=== PATIENT | female | born 1940 | race Asian ===

== ENCOUNTER 2018-07-24 21:53 | Emergency (ER) | payer MEDICARE ==
[~2018-07-24] VITALS: Ht 162.6 cm; Wt 70.9 kg
[2018-07-24] MEDS ORDERED: FAMO20 PO (22:14)
[2018-07-24] MEDS ORDERED: ASPI-556 PO (22:14)
[2018-07-24] MEDS ORDERED: LOSA50TA64 PO (22:14)
[2018-07-24] MEDS ORDERED: AMLO-512 PO (22:14)
[2018-07-24] MEDS ORDERED: [UNRECOGNIZED DRUG - OTHER] PO (22:16)
[2018-07-24] MEDS ORDERED: CloNIDine HCL 0.2 MG TABLET PO ONE (22:45)
[2018-07-24 23:46] VITALS: BP 152/77
== END 2018-07-25 00:25 | disposition home or self-care (01) ==
LOC: EMS 21:57
DX: S09.90XA Unspecified injury of head, initial encounter (principal); M62.838 Other muscle spasm; I10 Essential (primary) hypertension; Z79.82 Long term (current) use of aspirin; Z79.899 Other long term (current) drug therapy; W18.39XA Other fall on same level, initial encounter; Y93.89 Activity, other specified; Y92.89 Other specified places as the place of occurrence of the external cause; Y99.8 Other external cause status
CPT/HCPCS: 70450; 72125

== ENCOUNTER 2018-07-27 02:38 | Emergency (ER) | payer MEDICARE ==
[~2018-07-27] VITALS: Ht 162.6 cm; Wt 70.5 kg
[~2018-07-27 02:38] MED LIST: AMLO-512 PO; ASPI-556 PO; FAMO20 PO; LOSA50TA64 PO; [UNRECOGNIZED DRUG - OTHER] PO
[2018-07-27 04:04] LABS: BASOPHILS % (AUTO) 1.3 % (0.0-2.0); EOSINOPHILS % (AUTO) 2.6 % (1.0-6.0); HEMATOCRIT 40.1 % (36-46); HEMOGLOBIN 12.9 g/dL (12.0-16.0); LYMPHOCYTES # (AUTO) 1.4 K/uL (1.0-4.8); LYMPHOCYTES % (AUTO) 32.9 % (22.0-44.0); MEAN CORPUSCULAR HEMOGLOBIN 26.4 pg (26.0-34.0); MEAN CORPUSCULAR HGB CONC 32.1 G/dL (31.0-37.0); MEAN CORPUSCULAR VOLUME 82 fL (80-100); MONOCYTES # (AUTO) 0.4 K/uL (0.1-1.0); MONOCYTES % (AUTO) 9.7 % (2.0-9.0); NEUTROPHILS # (AUTO) 2.3 K/uL (1.8-7.7); NEUTROPHILS % (AUTO) 53.5 % (40.0-70.0); PLATELET COUNT (AUTO) 157 K/uL (150-450); RED BLOOD CELL COUNT(AUTO) 4.87 MIL/uL (4.00-5.20); RED CELL DISTRIBUTION WIDTH 15.9 % (11.5-14.5)
[2018-07-27 04:12] LABS: CALCIUM, TOTAL 8.8 mg/dL (8.8-10.5); CREATININE 0.94 mg/dL (0.60-1.30); POTASSIUM 3.2 mmol/L (3.5-5.1)
[2018-07-27 04:15] VITALS: BP 121/68
[2018-07-27 04:17] LABS: ALBUMIN 3.4 g/dL (3.4-5.0); BILIRUBIN,TOTAL 0.4 mg/dL (0.1-1.0); TOTAL PROTEIN, SERUM 7.1 g/dL (6.4-8.2)
[2018-07-27] MEDS ORDERED: POTASSIUM CHLORIDE 20 MEQ ER TABLET PO ONE (04:30)
== END 2018-07-27 04:45 | disposition home or self-care (01) ==
LOC: EMS 02:42
DX: R11.0 Nausea (principal); I10 Essential (primary) hypertension; Z79.899 Other long term (current) drug therapy; Z85.3 Personal history of malignant neoplasm of breast; Z85.830 Personal history of malignant neoplasm of bone; Z92.21 Personal history of antineoplastic chemotherapy; Z98.890 Other specified postprocedural states